=== PATIENT | male | born 1960 ===

== ENCOUNTER 2021-03-04 07:17 | Emergency (ER) | payer MEDICAID ==
[~2021-03-04] VITALS: Ht 190.5 cm; Wt 159.0 kg
[2021-03-04 08:35] LABS: ALANINE AMINOTRANSFERASE 38 U/L (12-78); ALBUMIN 3.6 g/dL (3.4-5.0); ANION GAP 7 mmol/L (5-15); CALCIUM 8.1 mg/dL (8.5-10.1); CHLORIDE 105 mmol/L (98-107); CREATININE 1.05 mg/dL (0.7-1.3)
[2021-03-04 08:36] LABS: BASOPHILS % (AUTO) 0 % (0-1); EOSINOPHILS % (AUTO) 3 % (1-7); LYMPHOCYTES % (AUTO) 24 % (22-44); MEAN CORPUSCULAR HEMOGLOBIN 30.3 pg (27.5-34.5); MEAN CORPUSCULAR HGB CONC 32.7 g/dL (33.2-36.2); MEAN PLATELET VOLUME 9.5 fL (7.4-10.4); MONOCYTES % (AUTO) 12 % (2-9); NEUTROPHILS % (AUTO) 61 % (42-75); PLATELET COUNT 193 x10^3/uL (130-400); RED CELL DISTRIBUTION WIDTH 13.4 % (9.4-14.8)
[2021-03-04 08:37] LABS: ALKALINE PHOSPHATASE 62 U/L (45-117); BILIRUBIN,TOTAL 0.7 mg/dL (0.2-1.0); TOTAL PROTEIN 6.8 g/dL (6.4-8.2)
[2021-03-04 08:38] LABS: MD NO
--- NOTE | 2021-03-04 10:03 | NUR ---
up for recheck. unable to give stool sample. vss. nad. as
--- NOTE | 2021-03-04 10:33 | NUR ---
stool sample walked to lab. as
[2021-03-04 11:23] LABS: CLOSTRIDIUM DIFFICILE ANTIGEN NEGATIVE; CLOSTRIDIUM DIFFICILE TOXIN NEGATIVE (Negative); CRYPTOSPORIDIUM ANTIGEN Negative (Negative)
[2021-03-04 11:42] VITALS: BP 175/75
== END 2021-03-04 11:58 | disposition home or self-care (01) ==
LOC: ED 11:52
DX: R19.7 Diarrhea, unspecified (principal); Z20.822 Contact with and (suspected) exposure to COVID-19; R11.10 Vomiting, unspecified
CPT/HCPCS: 36415; 80053; 83690; 85025; 87046; 87077; 87252; 87324; 87328; 87329; 87427; 89055; 99283; U0003